=== PATIENT | female | born 1985 | race African-American/Black ===

== ENCOUNTER 2021-07-13 08:49 | Day surgery (SDC) | payer OTHER ==
[2021-07-08 12:14] VITALS: BMI 30.9
[2021-07-13] MEDS ORDERED: Thrombin 5000 UNITS/5 ML VIAL ONE (09:53)
[2021-07-13] MEDS ORDERED: Lidocaine 1% MPF 2 ML VIAL ONE (09:54)
[2021-07-13 09:59] LABS: BHCG - Serum Negative (NEGATIVE); Pregs Control Background? CLEAR/WHITE (CLR/WHITE); Pregs Control Bar Appear? YES (CONTROL BAR)
[2021-07-13 10:07] LABS: #Eosinphils 0.1 thou/uL (0.0-0.7); #Lymphocytes 2.9 thou/uL (1.20-3.40); #Monocytes 0.3 thou/uL (0.11-0.59); #Neutrophils 2.6 thou/uL (1.40-6.50); %Basophils 0.7 % (0.0-1.0); %Lymphocytes 48.9 % (21.0-51.0); %Monocytes 5.4 % (0.0-10.0); Hemoglobin 12.7 g/dL (12.0-16.0); Mean Corpuscular HGB CONC 32.3 g/dL (32.0-36.0); Mean Corpuscular Hemoglobin 31.9 pg (27.0-31.0); Mean Corpuscular Volume 98.6 fL (78.0-98.0); Mean Platelet Volume 6.2 fL (7.4-10.4); Platelet Count 357 thou/uL (130-400); RBC Distribution Width 11.7 % (11.5-14.5); Red Blood Cell (RBC) Count 3.99 mill/uL (4.20-5.40); White Blood Cell (WBC) Count 5.9 thou/uL (4.8-10.8)
[2021-07-13] MEDS ORDERED: Fentanyl 250 MCG/5 ML VIAL ONE ×2 (10:28→12:58)
[2021-07-13] MEDS ORDERED: Ketamine 50 MG/ML (10ML VIAL) ONE (10:28)
[2021-07-13] MEDS ORDERED: ceFAZolin 2 GM/DEX 5% 100 ML BAG ONE (10:33)
[2021-07-13 10:35] LABS: Anion Gap 13 mmol/L (10-20); BUN (Urea Nitrogen) 12 mg/dL (7.0-18.7); Calc. Creatinine Clearance 136 mL/min (70-130); Calcium 8.9 mg/dL (7.8-10.44); Carbon Dioxide 22 mmol/L (22-29); Chloride 106 mmol/L (98-107); Glucose 87 mg/dL (70-105); Potassium 3.7 mmol/L (3.5-5.1); Sodium 137 mmol/L (136-145)
[2021-07-13] MEDS ORDERED: Ondansetron PF 4 MG/2 ML Vial ONE (10:45)
[2021-07-13] MEDS ORDERED: Lidocaine 1% PF 5 ML VIAL ONE (10:45)
[2021-07-13] MEDS ORDERED: Dexamethasone 20 MG/5 ML VIAL ONE (10:45)
[2021-07-13] MEDS ORDERED: PROPOFOL 200 MG/20 ML VIAL ONE (10:45)
[2021-07-13] MEDS ORDERED: GLYCOPYRROLATE/PF 0.2 MG/ML VIAL ONE (10:45)
[2021-07-13] MEDS ORDERED: Rocuronium Bromide 10 MG/ML (10ML VIAL) ONE (10:45)
[2021-07-13] MEDS ORDERED: HYDROcodone/Acetaminophen 5/325 mg Tablet ONE (14:21)
== END 2021-07-13 15:57 | disposition home or self-care (01) ==
LOC: SDC 08:49
PROVIDERS: ATTEND Neurological Surgery
PROC: 0SG00AJ Fusion of Lumbar Vertebral Joint with Interbody Fusion Device, Posterior Approach, Anterior Column, Open Approach (ICD-10-PCS; principal; 2021-07-13)
DX: M48.062 Spinal stenosis, lumbar region with neurogenic claudication (principal); M51.36 Other intervertebral disc degeneration, lumbar region; E66.9 Obesity, unspecified; Z68.36 Body mass index [BMI] 36.0-36.9, adult; Z86.16 Personal history of COVID-19; Z87.891 Personal history of nicotine dependence; Z88.0 Allergy status to penicillin
CPT/HCPCS: 36415; 36416; 76000; 80048; 84703; 85025; 93005; 93010; C1713; C1768; C1776; J1100; J2405; J2704; J3010; J3370; J3490